=== PATIENT | female | born 1955 | race Caucasian/White ===

== ENCOUNTER → 2020-05-04 | Outpatient (CLI) | payer BC ==
[2020-05-07 15:09] LABS: HPV 16 Negative (Negative); HPV 18 Negative (Negative); HPV OTHER HR TYPES Negative (Negative)
== END ==
LOC: LAB SHORT 12:58 → LAB 12:58
PROVIDERS: Family Medicine
DX: Z01.419 Encounter for gynecological examination (general) (routine) without abnormal findings (principal)
CPT/HCPCS: 87624; G0123

== ENCOUNTER 2024-12-19 07:20 | Day surgery (SDC) | payer MEDICARE, OTHER ==
[~2024-12-19] VITALS: Ht 170.2 cm; Wt 83.2 kg
[2024-12-19] MEDS ORDERED: LISINOPRIL-HCT1 EACH PO (07:33)
[2024-12-19] MEDS ORDERED: ATOR10 (07:33)
[2024-12-19] MEDS ORDERED: Lactated Ringer's 1,000 ML IV ONE ×2 (07:37→08:00)
[2024-12-19] MEDS ORDERED: propofoL 50 ML IV ONE (07:37)
[2024-12-19 09:44] VITALS: BP 105/74
== END 2024-12-19 09:44 | disposition home or self-care (01) ==
LOC: ORSCSDS 07:20
PROVIDERS: Surgery
PROC: 0DJD8ZZ Inspection of Lower Intestinal Tract, Via Natural or Artificial Opening Endoscopic (ICD-10-PCS; principal; 2024-12-19 08:45)
DX: Z12.11 Encounter for screening for malignant neoplasm of colon (principal); K57.30 Diverticulosis of large intestine without perforation or abscess without bleeding; E78.5 Hyperlipidemia, unspecified; I10 Essential (primary) hypertension; E78.00 Pure hypercholesterolemia, unspecified; Z79.899 Other long term (current) drug therapy
CPT/HCPCS: J2704; J7120